=== PATIENT | male | born 1990 | race Caucasian/White ===

== ENCOUNTER 2016-12-30 17:43 | Emergency (ER) ==
[2016-12-30] MEDS ORDERED: ASPIRIN PO STA (18:04)
--- NOTE | 2016-12-30 18:47 | EKG Report ---
Test Performed on : 12/30/2016 5:58:11 PM Test Reason : CP Blood Pressure : / mmHG Vent. Rate : 084 BPM Atrial Rate : 084 BPM P-R Int : 136 ms QRS Dur : 088 ms QT Int : 350 ms P-R-T Axes : 018 056 022 degrees QTc Int : 413 ms Normal sinus rhythm. Normal ECG No previous ECGs available Unconfirmed Result
--- NOTE | 2016-12-30 19:19 | ED EKG INTERP ---
EKG Interpretation - EKG Time of EKG reading by physician:: 17:59 EKG Read and Signed by:: Carlos Enrique Fong EKG Interpretation (*Must complete 3 of following elements*): Normal Rate: 84 Rhythm: NSR [place]: normal QRS: normal Attestation - Scribe Verification/Attestation Scribe:: Nabil Mancini Acting as Scribe for:: Carlos Enrique Fong Scribe documention review:: This chart was documented by a scribe and accurately reflects the service the provider performed and the decisions made by the provider.
--- NOTE | 2016-12-30 19:34 | Diag Imaging Result Document ---
PROCEDURE NAME: CHEST-2 VIEWS - 12/30/2016 FRONTAL AND LATERAL CHEST, 2 VIEWS: The lungs are well expanded. The heart is not enlarged. The vessels are not distended. No pneumonia. No pleural effusions. No free air beneath the diaphragm. IMPRESSION: No acute abnormality.
[2016-12-30 19:47] LABS: MANUAL DIFF NEEDED? NO
[2016-12-30 19:48] LABS: BASO% 0.2 % (0.0-0.8); EOS# 0.19 X1000 (0.0-0.7); HEMATOCRIT 42.4 % (42.0-52.0); HEMOGLOBIN 14.9 g/dL (14.0-18.0); IMM GRAN# 0.02 X1000 (0.0-0.04); IMM GRAN% 0.2 % (0.0-0.5); LYMPH# 3.06 X1000 (1.2-3.4); LYMPH% 32.8 % (20.5-51.1); MCH 32.8 PG (27-31); MCHC 35.1 g/dL (33-37); MCV 93.4 FL (81-99); MONO% 13.9 % (1.7-9.3); MPV 10.7 FL (7.4-10.4); NEUT% 50.9 % (42.2-75.2); PLT 234 X1000 (130-400); RBC 4.54 XMIL (4.7-6.1)
[2016-12-30 19:57] LABS: AGAP 11; ALBUMIN 4.7 g/dL (3.5-5.0); ALKALINE PHOSPHATASE 59 U/L (32-122); BUN 9 mg/dL (8-22); CALCIUM 10.3 mg/dL (8.8-10.2); CHLORIDE 100 mmol/L (98-107); CK PROFILE 165 U/L (24-204); GOT 88 U/L (10-34); GPT 147 U/L (10-44); MAGNESIUM 2.1 mg/dL (1.5-2.7); POTASSIUM 3.8 mmol/L (3.5-5.1); SODIUM 138 mmol/L (136-145); TCO2 28 mmol/L (25-35); TOTAL PROTEIN 7.1 g/dL (6.3-8.3)
[2016-12-30 20:00] LABS: INR 0.94 (0.86-1.15); PROTIME 12.9 Seconds (12.1-15.5)
[2016-12-30 20:24] LABS: URINE CULTURE PL NEEDED? NO; URINE SOURCE VOIDED
[2016-12-30 20:46] LABS: COSMO 273
[2016-12-30] MEDS ORDERED: G.I. COCKTAIL PO ONE (20:52)
[2016-12-30 21:01] LABS: BILIRUBIN URINE NEGATIVE (NEGATIVE); BLOOD URINE NEGATIVE (NEGATIVE); CLARITY CLEAR (CLEAR); COLOR YELLOW; GLUCOSE URINE NEGATIVE (NEGATIVE); LEUKOCYTES URINE NEGATIVE (NEGATIVE); NITRITE URINE NEGATIVE (NEGATIVE); PH URINE 6.5; PROTEIN URINE NEGATIVE (NEGATIVE); UROBILINOGEN URINE NORMAL
--- NOTE | 2016-12-30 21:03 | PROVIDER DOCUMENTATION ---
HPI-Cardiac General - General Chief Complaint: Chest Pain Stated Complaint: CHEST PAIN, NUMBNESS IN LEFT ARM Time Seen by Provider: 12/30/16 18:25 Source: patient Allergies/Adverse Reactions: Patient Allergies Allergy/AdvReac Type Severity Reaction Status Date / Time sulfamethoxazole Allergy Mild SWELLING Verified 12/30/16 17:54 [From ] trimethoprim [From ] Allergy Mild SWELLING Verified 12/30/16 17:54 tramadol HCl * [From [facility]] AdvReac Mild NAUSEA Verified 12/30/16 17:54 Home Medications: Home Medication List Medication Instructions Recorded Confirmed Last Taken Type No Home Medications 02/15/14 12/30/16 Unknown History - History of Present Illness-Cardiac Nature of Presenting Problem: Pt c/o left chest pain for a few days. Seen at [place] on Saturday and had workup but the pain has came back and gotten even worse at this time. Location: reports: substernal Quality of Pain: reports: pressure, tightness Severity in ED: mild Onset/Duration: abrupt Timing: still present, improving Context/Activities at Onset: reports: none Modifying Factors: improves with: nothing Palpitation Quality: N/A History of arrythmia: reports: none Recent use of:: reports: no stimulants Nitro Today/Relief: reports: no nitro taken today Aspirin Treatment Today: reports: no aspirin today Similar Symptoms Previously?: Yes Recently Seen Here or By Another Healthcare Provider: Yes Review of Systems - Adult - REVIEW OF SYSTEMS - ADULT Constitutional: reports: see HPI. denies: no symptoms reported, chills, fever, fatique, night sweats, weight gain, weight loss, other Eyes: reports: no symptoms reported. denies: see HPI, discharge, dry eyes, decreased vision, blurred vision, double vision, eye pain, redness, other Ears, Nose, Mouth & Throat: reports: no symptoms reported. denies: see HPI, ear discharge, ear pain, hearing loss, tinnitus, epistaxis, sinus problem, nose pain, loose teeth, mouth/dental pain, mouth swelling, hoarseness, throat pain, throat swelling, other Cardiovascular: reports: see HPI, chest pain Respiratory: reports: no symptoms reported. denies: see HPI, chronic cough, cough, dyspnea on exertion, excessive sputum production, hemoptysis, pleurisy, shortness of breath, wheezing, other Gastrointestinal: reports: no symptoms reported. denies: see HPI, abdominal pain, hematemesis, constipation, diarrhea, difficulty swallowing, frequent heartburn, nausea, poor appetite, rectal bleeding, vomiting, other Genitourinary: reports: no symptoms reported. denies: see HPI, dysuria, discharge, frequency, flank pain, frequent UTI's, hematuria, hesitency, incontinence, urinary retention, urgency, other Musculoskeletal: reports: no symptoms reported. denies: see HPI, bone pain, back pain, frequent leg cramps, joint pain, joint swelling, muscle aches, muscle weakness, neck pain, other Integumentary: reports: no symptoms reported. denies: see HPI, hives, hair loss , itching, mole changes, nail changes, rash, skin sores/ulcer, skin thickening, other Neurological: reports: no symptoms reported. denies: see HPI, ataxia, dizziness /vertigo, headache/migraines, loss of balance, numbness, paresthesia, seizure, slurred speech, syncope, tremors, other All Other Systems: Reviewed and Negative Past History - Adult - PAST MEDICAL HISTORY-ADULT Review of Records: reports: Old Records Reviewed, Nursing Assessment Review, Medications Reviewed, Social history reviewed & non-contributory. Physical Exam-General - PHYSICAL EXAM-ADULT Initial Vital Signs Reviewed: Yes - CONSTITUTIONAL General Appearance: appears well, alert, no apparent distress. negative: mild distress, moderate distress, severe distress, cachetic, obese, thin, anxious, lethargic, slow to respond, obtunded, combative, other - EYES Eyes: PERRL/EOMI, pink conjunctivae. negative: fundi clear, no AV nicking, anisocoria, conjuctival exudate, EOM palsy, meningismus, pale conjunctivae, photophobia, sclera injected, scleral icterus, subconjunctival hemorrhage, sunken eyes, other - HEAD, EARS, NOSE, MOUTH & THROAT HENMT: normocephalic/atraumatic, moist mucous membranes, normal ENT inspection, TMs normal, pharynx normal. negative: angioedema, dental decay, hearing deficit , pharyngeal erythema, tonsillar exudate, TM abnormal, TM obscurred by cerumen, frontal tenderness, maxillary tenderness, other - NECK Neck: non-tender, full range of motion, supple, normal inspection. negative: Brudzinski's sign, carotid bruit, C-spine tenderness, limited range of motion, lymphadenopathy, meningismus, trachial deviation, tender lateral, tender midline , thyromegaly, other - RESPIRATORY Respiratory: chest non-tender, lungs clear, normal breath sounds, no pleuratic chest pain, no respiratory distress, no accessory muscle use. negative: respiratory distress, decreased breath sounds, accessory muscle use, crackles, rales, rhonchi, stridor, wheezing, dull on percussion, prolonged expiration, pain on inspiration, plerual rub, retractions, splinting, decreased rate, increased rate, crepitus, other - CARDIOVASCULAR Cardiovascular: normal peripheral pulses, regular rate, rhythm, no edema, no gallop, no JVD, no murmur. negative: JVD, bradycardia, tachycardia, diastolic murmur, systolic murmur, gallop/S3, gallop/S4, extra beats, friction rub, irregularly irregular, PMI displaced laterally, other - CHEST (BREASTS) Chest/Breast: no masses/lumps, no tenderness - GASTROINTESTINAL (ABDOMEN) Abdominal Exam: normal bowel sounds, non tender, soft, no organomegaly, no pulsatile mass. negative: abdominal bruit, abnormal bowel sounds, distended, guarding, rigid, rebound, tenderness, hernia, mass, hepatomegaly, spleenomegaly , McBurney's point tenderness, Oscar's sign, obturator sign, prominent aortic pulsations, psoas, Rovsing's sign, other - GENITOURINARY Male Genitalia: deferred - LYMPHATIC Lymphatic: no adenopathy - MUSCULOSKELETAL Back Exam: normal inspection, no CVA tenderness, no vertebral tenderness. negative: CVA tenderness, decreased range of motion, ecchymosis, kyphosis, lordosis, muscle spasm, scoliosis, swelling, vertebral tenderness, other Extremity: normal range of motion, non-tender, normal gait, normal inspection, no pedal edema, no calf tenderness, normal capillary refill. negative: pelvis stable, abnormal NV exam, calf tenderness, deformity, erythema, inflammation, joint effusion, pulse deficit, pedal edema, slow capillary refill, swelling, tenderness, other - SKIN Integumentary: normal color, normal turgor, warm/dry. negative: abrasion(s), blanching, cyanosis, diaphoresis, decubitus, dependent lividity, ecchymosis, embolic lesions, erythema, signs of IVDA, jaundice, laceration(s), mottled, pallor, petechiae, purpura, rash, swelling, tenderness, warm, zoster-like rash, other - NEUROLOGIC Neurologic: grossly normal - PSYCHIATRIC Psych/Mental Status: oriented x 3 Progress - PLAN OF CARE/RESULTS Progress/Plan/Lab Results: Laboratory Tests 12/30/16 12/30/16 12/30/16 19:20 19:25 19:25 WBC RBC Hgb Hct MCV MCH MCHC RDW Std Deviation Plt Count MPV Immature Gran % (Auto) Neut % (Auto) Lymph % (Auto) [place] % (Auto) Eos % (Auto) Baso % (Auto) Immature Gran # (Auto) Neut # (Auto) Lymph # (Auto) [place] # (Auto) Eos # (Auto) Baso # (Auto) PT INR APTT (Factor Assay) D-Dimer Sodium 138 Potassium 3.8 Chloride 100 Carbon Dioxide 28 Anion Gap 11 BUN 9 Creatinine 0.7 Estimated GFR/1.73 m2 > 60 BUN/Creatinine Ratio 13 Glucose 77 Calculated Osmolality 273 Calcium 10.3 H Magnesium 2.1 Total Bilirubin 0.30 AST 88 H ALT 147 H Alkaline Phosphatase 59 Creatine Kinase 165 Troponin T < 0.010 [id number] Pept Total Protein 7.1 Albumin 4.7 Globulin 2.0 Albumin/Globulin Ratio 2.0 Urine Source VOIDED Urine Color YELLOW Urine Clarity CLEAR Urine pH 6.5 Ur Specific [place] 1.020 Urine Protein NEGATIVE Urine Ketones NEGATIVE Urine Blood NEGATIVE Urine Nitrite NEGATIVE Urine Bilirubin NEGATIVE Urine Urobilinogen NORMAL Urine Microscopic RBC <10 Urine WBC NEGATIVE Urine Microscopic WBC <10 Ur Epithelial Cells <10 Urine Bacteria NEGATIVE Urine Glucose NEGATIVE 12/30/16 12/30/16 12/30/16 19:25 19:25 19:25 WBC 9.34 RBC 4.54 L Hgb 14.9 Hct 42.4 MCV 93.4 MCH 32.8 H MCHC 35.1 RDW Std Deviation 12.3 Plt Count 234 MPV 10.7 H Immature Gran % (Auto) 0.2 Neut % (Auto) 50.9 Lymph % (Auto) 32.8 [place] % (Auto) 13.9 H Eos % (Auto) 2.0 Baso % (Auto) 0.2 Immature Gran # (Auto) 0.02 Neut # (Auto) 4.75 Lymph # (Auto) 3.06 [place] # (Auto) 1.30 H Eos # (Auto) 0.19 Baso # (Auto) 0.02 PT 12.9 INR 0.94 APTT (Factor Assay) 28.0 D-Dimer < 0.22 L Sodium Potassium Chloride Carbon Dioxide Anion Gap BUN Creatinine Estimated GFR/1.73 m2 BUN/Creatinine Ratio Glucose Calculated Osmolality Calcium Magnesium Total Bilirubin AST ALT Alkaline Phosphatase Creatine Kinase Troponin T [id number] Pept 13 Total Protein Albumin Globulin Albumin/Globulin Ratio Urine Source Urine Color Urine Clarity Urine pH Ur Specific [place] Urine Protein Urine Ketones Urine Blood Urine Nitrite Urine Bilirubin Urine Urobilinogen Urine Microscopic RBC Urine WBC Urine Microscopic WBC Ur Epithelial Cells Urine Bacteria Urine Glucose Orders Category Date Time Status Cardiac Monitoring DIRECTED Care 12/30/16 18:04 Active Oxygen Therapy- ED Nursing DIRECTED Care 12/30/16 18:04 Active Saline Loc NOW Care 12/30/16 18:04 Active CHEST-2 VIEWS [RAD] Stat Exams 12/30/16 18:04 Completed CBC WITH ELECTRONIC DIFF [HEME] Stat Lab 12/30/16 19:25 Completed CK PROFILE [SP CHEM] Stat Lab 12/30/16 19:25 Completed COMPREHENSIVE METABOLIC PANEL [CHEM] Stat Lab 12/30/16 19:[address] D-D[address]ER [address] [COAG] Stat Lab 12/30/16 19:25 Completed MAGNESIUM [CHEM] Stat Lab 12/30/16 19:25 Completed PRO B-NATRIURETIC PEPTIDE Stat Lab 12/30/16 19:25 Com[address]IME WITH INR PL [COAG] Stat Lab 12/30/16 19:[address] [COAG] Stat Lab 12/30/16 19:25 Completed TROPONIN T Stat Lab 12/30/16 19:[address] W/POSS RFLX CULT [URINALYSIS] Stat Lab 12/30/16 19:20 Completed Aspirin Med 12/30/16 18:04 Discontinued 325 mg PO STAT STA Lido/Fernandez Alk/Al&mg Hydrox [G.i. Cocktail] Med 12/30/16 20:52 Discontinued 30 ml PO NOW ONE EKG [EKG] Stat Ther 12/30/16 17:48 Draft Vital Signs Temp Pulse Resp BP Pulse Ox 12/30/16 21:17 99.4 F 86 18 143/97 98 12/30/16 20:21 80 17 137/87 98 12/30/16 19:30 78 16 149/100 98 12/30/16 17:52 97.9 F 87 16 149/93 99 sulfamethoxazole [From [facility]] Allergy (Mild, Verified 12/30/16 17:54) SWELLING trimethoprim [From [facility]] Allergy (Mild, Verified 12/30/16 17:54) SWELLING tramadol HCl * [From [facility]] Adverse Reaction (Mild, Verified 12/30/16 17:54) NAUSEA No Home Medications 02/15/14 OTHER CHEST PAIN (12/30/16) ANESTHESIA OF SKIN (12/30/16) - XRAY 1 XRAY Study: Chest Impression: Normal XRAY Interpretation: Normal per radiologist. Departure - Departure Time of Disposition Order: 21:03 DIAGNOSIS: Chest pain Qualifiers: Chest pain type: unspecified Qualified Code(s): R07.9 - Chest pain, unspecified Disposition: HOME 01 Certified Medical Emergency: Emergent Condition: Stable Additional Instructions: ED Follow Up Instructions: You have been treated by a care provider in the Emergency Department. These instructions are being provided to you so you can have an understanding of how to care for yourself upon discharge. Upon discharge from the Emergency Department, you are responsible for making arrangements for follow-up care by a physician of your choice. Take all prescribed medications as directed. Return to the Emergency Department immediately for any new or worsening symptoms. You may call the Physician Referral phone number at [phone] to obtain a list of Physicians who are taking new patients. Referrals: None,PCP [Primary Care Provider] - Forms: Return to School/Parent Work Instructions: Chest Wall Pain, [id number] Attestation - Physician/ MANI Attestation Patient care was provided by Advanced Practice Provider:: Yes Advanced Practice Provider:: Zane Lambert Advanced Practice Provider documentation review:: The Mid-level provider documentation, treatment plan and medical decision making was reviewed by the physician who agrees with all treatment and medical decision making by the MLP.
[2016-12-30 21:05] LABS: URINE WBC <10 /HPF (<10)
[2016-12-30 21:06] LABS: URINE EPITHELIAL CELLS <10 /HPF (<10); URINE RBC <10 /HPF (<10)
[2016-12-30 21:32] VITALS: BP 143/97
== END 2016-12-30 21:17 | disposition home or self-care (01) ==
LOC: P.ED 17:43
DX: R07.89 Other chest pain (principal); R20.0 Anesthesia of skin
CPT/HCPCS: 71020; 80053; 81001; 82550; 83735; 83880; 84484; 85025; 85379; 85610; 85730; 93005; 99284